=== PATIENT | female | born 1985 | race Caucasian/White ===

== ENCOUNTER → 2017-04-17 | Outpatient (CLI) | payer BC ==
[~2017-04-17] MED LIST: ASPI81TA28 PO; AZAT50TA17 PO; AZAT50TA22 PO; BCPILLS PO; CALC750C PO; CHOL400C PO; FEXO1TAB46 PO; FLV1 PO; FOLI1TAB7 PO; HYDR200T5 PO; MAGN400T6 PO; METH2.5T PO; MOXI400T2 PO; NAPR-1169 PO; ONDA4TAB10 SL; PLQ200 PO; PRD/1 PO; PRED-301 PO; PRLSR20 PO; PROM12.57 PO
== END | disposition home or self-care (01) ==
LOC: C.LABBC 14:30
PROVIDERS: ATTEND Internal Medicine Rheumatology
DX: M35.9 Systemic involvement of connective tissue, unspecified (principal)

== ENCOUNTER → 2017-04-17 | Outpatient (CLI) | payer BC ==
[2017-04-17 17:43] LABS: ALT/SGPT 20 U/L (12-78); AST/SGOT 19 U/L (15-37); BLOOD UREA NITROGEN 11 mg/dl (7-18); BUN/CREATININE RATIO 13.6 (10-20); CALCIUM 8.7 mg/dl (8.5-10.1); CARBON DIOXIDE 30 mmol/L (21-32); CHLORIDE 106 mmol/L (98-107); CREATININE 0.81 mg/dl (0.60-1.20); GLUCOSE 97 mg/dl (70-99); MAGNESIUM 2.3 mg/dl (1.8-2.4); SODIUM 141 mmol/L (136-145)
[2017-04-17 17:46] LABS: ALB/GLOB RATIO 0.7 (0.9-2); ALKALINE PHOSPHATASE 78 U/L (45-117)
== END | disposition home or self-care (01) ==
LOC: C.LABBC 14:28
PROVIDERS: ATTEND Family Medicine
DX: M35.9 Systemic involvement of connective tissue, unspecified (principal); E83.51 Hypocalcemia; E83.42 Hypomagnesemia

== ENCOUNTER → 2017-06-02 | Outpatient (CLI) | payer BC ==
[~2017-06-02] MED LIST changes: -ASPI81TA28 PO; -AZAT50TA17 PO; -AZAT50TA22 PO; -CALC750C PO; -CHOL400C PO; -FLV1 PO; -MAGN400T6 PO; -MOXI400T2 PO; -ONDA4TAB10 SL; -PLQ200 PO; -PRED-301 PO; -PROM12.57 PO
== END | disposition home or self-care (01) ==
LOC: C.PAPS 11:14
PROVIDERS: ATTEND Obstetrics & Gynecology
DX: Z01.419 Encounter for gynecological examination (general) (routine) without abnormal findings (principal); Z30.41 Encounter for surveillance of contraceptive pills

== ENCOUNTER → 2017-06-02 | Outpatient (CLI) | payer BC | END | disposition home or self-care (01) | LOC: C.LAB1850 15:36 | PROVIDERS: ATTEND Obstetrics & Gynecology | DX: Z31.69 Encounter for other general counseling and advice on procreation (principal) ==

== ENCOUNTER → 2017-07-11 | Outpatient (CLI) | payer BC | END | disposition home or self-care (01) | LOC: C.LAB1850 10:10 | PROVIDERS: ATTEND Obstetrics & Gynecology | DX: Z31.69 Encounter for other general counseling and advice on procreation (principal) ==

== ENCOUNTER → 2017-12-09 | Outpatient (CLI) | payer OTHER ==
[~2017-12-09] MED LIST changes: +ASPI81TA28 PO; +AZAT50TA17 PO; +AZAT50TA22 PO; -BCPILLS PO; +CALC750C PO; +CHOL400C PO; -FEXO1TAB46 PO; +FLV1 PO; -FOLI1TAB7 PO; -HYDR200T5 PO; +MAGN400T6 PO; -METH2.5T PO; -NAPR-1169 PO; +ONDA4TAB10 SL; +PLQ200 PO; +PRED-301 PO; -PRLSR20 PO; +PROM12.57 PO
--- NOTE | 2017-12-09 13:42 | DIAGNOSTIC IMAGING REPORT ---
R EXTREMITY NONVASCULAR LIMITED HISTORY: 32 years-old Female RT ELBOW PAIN acute right arm pain in the region of the antecubital fossa. COMPARISON: None available TECHNIQUE: Multiple real-time sonographic images of the right antecubital fossa region were obtained assessing grayscale appearance and color flow. Limited views of the left antecubital fossa also obtained for comparison. FINDINGS/IMPRESSION: There is mildly complex fluid noted adjacent to the distal humerus cortex measuring up to 1.7 x 0.4 x 0.4 cm correlating with the area of reported pain. No additional focal tissue abnormality, fluid collection or lesion identified. These findings suggest mildly complex small joint effusion. The above report was generated using voice recognition software. It may contain grammatical, syntax or spelling errors. Electronically signed by: Giuseppe Nielsen M.D. 12/09/2017 1:40 PM Dictated Date/Time: 12/09/2017 1:29 PM
== END | disposition home or self-care (01) ==
LOC: C.ULTR 12:40
PROVIDERS: ATTEND Internal Medicine Rheumatology
DX: M25.521 Pain in right elbow (principal)

== ENCOUNTER → 2018-06-12 | Outpatient (CLI) | payer OTHER ==
[~2018-06-12] MED LIST changes: -ONDA4TAB10 SL
== END | disposition home or self-care (01) ==
LOC: C.PAPS 14:42
PROVIDERS: ATTEND Obstetrics & Gynecology
DX: Z12.4 Encounter for screening for malignant neoplasm of cervix (principal)